=== PATIENT | female | born 1985 | race African-American/Black ===

== ENCOUNTER 2018-03-13 10:47 | Emergency (ER) | payer MEDICAID, OTHER ==
[~2018-03-13] VITALS: Ht 167.6 cm; Wt 76.0 kg
[2018-03-13 10:49] VITALS: BP 129/80
[2018-03-13] MEDS ORDERED: BACITRACIN ZINC OINT UDPKT TOP ONE (12:00)
[2018-03-13] MEDS ORDERED: TETANUS, DIPHTHERIA, PERTUSSIS VAC/PF 0.5ML (>7YR OLD) IM ONE (12:00)
[2018-03-13] MEDS ORDERED: LIDOCAINE HCL/PF 1% 10 MG/ML 5ML VIAL IJ ONE (12:00)
[2018-03-13] MEDS ORDERED: LIDOCAINE/EPINEPHR/TETRACAINE 3ML TP ONE (12:15)
== END 2018-03-13 14:21 | disposition home or self-care (01) ==
LOC: ER 10:47
DX: S81.812A Laceration without foreign body, left lower leg, initial encounter (principal); W22.8XXA Striking against or struck by other objects, initial encounter; Y93.02 Activity, running; Y92.39 Other specified sports and athletic area as the place of occurrence of the external cause; Z23 Encounter for immunization
CPT/HCPCS: 12002; 81025; 90471; 90715; 99283; J3490

== ENCOUNTER 2018-03-25 10:24 | Emergency (ER) | payer SELFPAY ==
[~2018-03-25] VITALS: Ht 167.6 cm; Wt 80.0 kg
[2018-03-25 13:23] VITALS: BP 132/79
== END 2018-03-25 13:25 | disposition home or self-care (01) ==
LOC: ER 13:21
DX: Z48.02 Encounter for removal of sutures (principal)
CPT/HCPCS: 99281